=== PATIENT | female | born 1960 | race Two or more races ===

== ENCOUNTER → 2016-10-08 | Outpatient (CLI) | payer OTHER ==
--- NOTE | 2016-10-08 13:56 | WOMENS IMAGING REPORT ---
EXAM DESCRIPTION: U/S BREAST UNILATERAL, COMPL COMPLETED DATE/TIME: 10/08/2016 1:15 pm REASON FOR STUDY: RT BREAST PAIN Z85.3 PERSONAL HISTORY OF MALIGNANT NEOPLASM OF BREAST COMPARISON: None. TECHNIQUE: Real-time and static grayscale imaging performed of the right axilla targeted to the area of clinical/mammographic concern. Selected color Doppler images recorded. LIMITATIONS: None. FINDINGS: MASS: 1.3 x 0.7 cm hypoechoic nodule with echogenic hilum typical of a lymph node. No oth er mass identified. OTHER: No other significant finding. IMPRESSION: Benign lymph node. BIRAD: 2 Benign findings. RECOMMENDATION: RECOMMENDED FOLLOW-UP: Follow-up as clinically indicated. COMMENT: The [employer] (ACR) has developed recommendations for screening MRI of the breasts in certain patient populations, to be used in conjunction with mammography. Breast MRI s urveillance may be appropriate for women with more than 20% lifetime risk of developing breast cancer as determined by genetic testing, significant family history of the disease, or history of mantle r adiation for Hodgkins Disease. ACR Practice Guidelines 2008. TECHNICAL DOCUMENTATION: JOB ID: [id number] [employer]- All Rights Reserved
--- NOTE | 2016-10-08 14:37 | WOMENS IMAGING REPORT ---
EXAM DESCRIPTION: LEFT SCREENING MAMMO W/CAD COMPLETED DATE/TIME: 10/08/2016 2:23 pm REASON FOR STUDY: LEFT BREAST SCREENING Z12.31 Z85.3 PERSONAL HISTORY OF MALIGNANT NEOPLASM OF [address] COMPARISON: April 2011 TECHNIQUE: Standard craniocaudal and mediolateral oblique views of the breast recorded using digital acquisition. LIMITATIONS: None. FINDINGS: BREAST: left No masses, calcifications or architectural distortion. No areas of suspicion. Read with the assistance of CAD. .[facility] - R2 Cenova Version 1.3 .[facility] - R2 Cenova Version 1.3 .[facility] - R2 Cenova Version 2.4 .[facility] - R2 Cenova Version 2.4 .[facility] - R2 [employer] Version 9.2 IMPRESSION: NORMAL MAMMOGRAM. BIRADS 1. BREAST DENSITY: b. There are scattered areas of fibroglandular density. BIRAD: 1 NEGATIVE RECOMMENDATION: RECOMMENDATION: ROUTINE SCREENING. COMMENT: The patient has been notified of the results by letter per SA requirements. Additional no tification policies are in place for contacting patient with suspicious or incomplete findings. Quality ID #225: The [employer] recommends an annual screening mammogram for women aged 40 years or over. This facility utilizes a reminder system to ensure that all patients receive reminder letters, and/or direct phone calls for appointments. This includes reminders for routine scr eening mammograms, diagnostic mammograms, or other Breast Imaging Interventions when appropriate. Th is patient will be placed in the appropriate reminder system. The [employer] (ACR) has developed recommendations for screening MRI of the breast s in certain patient populations, to be used in conjunction with mammography. Breast MRI surveillance may be appropriate for women with more than 20% lifetime risk of developing breast cancer as determi ricci by genetic testing, significant family history of the disease, or history of mantle radiation for Hodgkins Disease. ACR Practice Guidelines 2008. TECHNICAL DOCUMENTATION: FINDING NUMBER: (1) ASSESSMENT: (1) JOB ID: [id number] [employer]- All Rights Reserved
== END ==
LOC: WI 11:03
PROVIDERS: ATTEND Nurse Practitioner
DX: Z12.31 Encounter for screening mammogram for malignant neoplasm of breast (principal); Z85.3 Personal history of malignant neoplasm of breast
CPT/HCPCS: 76641; G0202

== ENCOUNTER → 2018-03-18 | Outpatient (CLI) | payer OTHER ==
--- NOTE | 2018-03-18 12:11 | WOMENS IMAGING REPORT ---
EXAM DESCRIPTION: U/S BREAST UNILAT LIMITED COMPLETE DATE/TIME: 03/18/2018 9:16 am REASON FOR STUDY: LEFT BREAST PAIN N64.4 N64.4 MASTODYNIA Z85.3 PERSONAL HISTORY OF MALIGNANT NEOP LASM OF BREAST FINDINGS: Please see combined report for performance of procedure and radiologic supervision and int erpretation. IMPRESSION: Please see combined report for performance of procedure and radiologic supervision and i nterpretation. Reading location - IP/workstation name: [email or web address]
--- NOTE | 2018-03-18 12:11 | WOMENS IMAGING REPORT ---
EXAM DESCRIPTION: U/S BREAST UNILAT LIMITED COMPLETED DATE/TIME: 03/18/2018 9:12 am REASON FOR STUDY: RT BREAST PAIN N64.4 N64.4 MASTODYNIA Z85.3 PERSONAL HISTORY OF MALIGNANT NEOPLA SM OF BREAST COMPARISON: 10/08/2016 TECHNIQUE: Real-time and static grayscale imaging performed of the right breast targeted to the area of clinical/mammographic concern. Selected color Doppler images recorded. LIMITATIONS: None. FINDINGS: MASS: The right breast was scanned from the 10 o'clock to the 12 o'clock axes, and over t he incisional site. No mass identified. Normal glandular tissue. OTHER: As on the prior examination dated 10/08/2016, a benign-appearing right axillary lymph node whic h contains a hilus of fat, measures 11.2 x 4.2 x 7.7 mm. IMPRESSION: 1. No suspicious findings detected by ultrasound. BIRAD: 2 Benign findings. RECOMMENDATION: RECOMMENDED FOLLOW-UP: 1. Clinical correlation and patient advised to The patient was advised to follow-up with provider. COMMENT: The [employer] (ACR) has developed recommendations for screening MRI of the breasts in certain patient populations, to be used in conjunction with mammography. Breast MRI s urveillance may be appropriate for women with more than 20% lifetime risk of developing breast cancer as determined by genetic testing, significant family history of the disease, or history of mantle r adiation for Hodgkins Disease. ACR Practice Guidelines 2007. TECHNICAL DOCUMENTATION: JOB ID: [id number] [employer]- All Rights Reserved Reading location - IP/workstation name: [email or web address]
--- NOTE | 2018-03-18 12:11 | WOMENS IMAGING REPORT ---
EXAM DESCRIPTION: LEFT DIAGNOSTIC MAMMO W/CAD COMPLETED DATE/TIME: 03/18/2018 8:48 am REASON FOR STUDY: N64.4 LEFT BREAST PAIN N64.4 MASTODYNIA Z85.3 PERSONAL HISTORY OF MALIGNANT NEOP LASM OF BREAST COMPARISON: Digital left breast screening mammogram dated 10/08/2016 and 12/14/2014. TECHNIQUE: Standard craniocaudal and mediolateral oblique images of the breast recorded with digital acquisition. LIMITATIONS: None. FINDINGS: BREAST: LEFT MASSES: No suspicious masses. CALCIFICATIONS: No new or suspicious calcifications. ARCHITECTURAL DISTORTION: None. DEVELOPING DENSITY: None. ASYMMETRY: None noted. OTHER: No other significant findings. Read with the assistance of CAD. .[facility] - R2 Cenova Version 1.3 .[facility] Imaging - R2 Cenova Version 1.3 .[facility] Imaging - R2 Cenova Version 2.4 .[facility] [place] R2 Cenova Version 2.4 .[facility] - R2 [employer] Practitioner Version 9.2 BREAST ULTRASOUND: TECHNIQUE: Static and dynamic grayscale images acquired of the left breast in the specific areas of c linical/mammographic concern. Selected color Doppler images recorded. ELASTOGRAPHY PERFORMED: A FORMAL LIMITATIONS: None. FINDINGS: LEFT MASS: The left breast was scanned from the 12 to 3 o'clock axes(clinical area of pain). No mass iden tified. Normal glandular tissue. ELASTOGRAPHY CHARACTERISTICS: Not applicable. OTHER: No other significant finding. IMPRESSION: Negative -BI-RADS 1 BREAST DENSITY: b. There are scattered areas of fibroglandular density. BIRAD: 1 Negative. RECOMMENDATION: 1. Routine screening mammogram. 2. Clinical correlation and patient advised to follow-up with her provider. COMMENT: The patient has been notified of the results by letter per MQSA requirements. Additional no tification policies are in place for contacting patient with suspicious or incomplete findings. Quality ID #225: The [employer] recommends an annual screening mammogram for women aged 40 years or over. This facility utilizes a reminder system to ensure that all patients receive reminder letters, and/or direct phone calls for appointments. This includes reminders for routine scr eening mammograms, diagnostic mammograms, or other Breast Imaging Interventions when appropriate. Th is patient will be placed in the appropriate reminder system. The [employer] (ACR) has developed recommendations for screening MRI of the breast s in certain patient populations, to be used in conjunction with mammography. Breast MRI surveillanc e may be appropriate for women with more than 20% lifetime risk of developing breast cancer as deter mined by genetic testing, significant family history of the disease, or history of mantle radiation f or Hodgkins Disease. ACR Practice Guidelines 2008. TECHNICAL DOCUMENTATION: FINDING NUMBER: (1) ASSESSMENT: (1) JOB ID: [id number] [employer]- All Rights Reserved Reading location - IP/workstation name: [email or web address]
== END ==
LOC: WI 08:21
PROVIDERS: ATTEND Surgery
DX: N64.4 Mastodynia (principal); Z85.3 Personal history of malignant neoplasm of breast
CPT/HCPCS: 76642

== ENCOUNTER → 2019-02-27 | Outpatient (CLI) | payer OTHER ==
--- NOTE | 2019-02-27 11:47 | WOMENS IMAGING REPORT ---
EXAM DESCRIPTION: LEFT SCREENING MAMMO W/CAD COMPLETED DATE/TIME: 02/27/2019 9:13 am REASON FOR STUDY: Z12.31 SCREENING MAMMO Z12.31 ENCNTR SCREEN MAMMOGRAM FOR MALIGNANT NEOPLASM OF B RE COMPARISON: 2013 to 2017 EXAM PARAMETERS: Standard craniocaudal and mediolateral oblique views of the breast recorded using d igital acquisition. Read with the assistance of CAD. .[facility] - [employer] Version 9.2 LIMITATIONS: None FINDINGS: BREAST LATERALITY: left No suspicious masses, suspicious calcifications or architectural distortion. No areas of concern. IMPRESSION: NORMAL MAMMOGRAM. BIRADS 1. BREAST DENSITY: b. There are scattered areas of fibroglandular density. BIRAD: ASSESSMENT: 1 NEGATIVE RECOMMENDATION: RECOMMENDATION: ROUTINE SCREENING. COMMENT: The patient has been notified of the results by letter per MQSA requirements. Additional no tification policies are in place for contacting patient with suspicious or incomplete findings. Quality ID #225: The [employer] recommends an annual screening mammogram for women aged 40 years or over. This facility utilizes a reminder system to ensure that all patients receive reminder letters, and/or direct phone calls for appointments. This includes reminders for routine scr eening mammograms, diagnostic mammograms, or other Breast Imaging Interventions when appropriate. Th is patient will be placed in the appropriate reminder system. TECHNICAL DOCUMENTATION: FINDING NUMBER: (1) ASSESSMENT: (1) JOB ID: [id number] [employer]- All Rights Reserved Reading location - IP/workstation name: [email or web address]
== END ==
LOC: WI 08:45
PROVIDERS: ATTEND Surgery
DX: Z12.31 Encounter for screening mammogram for malignant neoplasm of breast (principal)

== ENCOUNTER 2020-03-21 08:57 | Day surgery (SDC) | payer OTHER ==
[2020-03-21 09:52] LABS: HEMATOCRIT 41.1 % (36.0-47.0); HEMOGLOBIN 13.9 g/dL (12.0-15.5); MEAN CORPUSCULAR HEMOGLOBIN 26.2 pg (27.0-33.4); MEAN CORPUSCULAR HGB CONC 33.8 g/dL (32.0-36.0); MEAN CORPUSCULAR VOLUME 78 fl (80-97); PLATELET COUNT 274 10^3/uL (150-450); RED BLOOD COUNT 5.31 10^6/uL (3.72-5.28); RED CELL DISTRIBUTION WIDTH 15.3 % (11.5-14.0); WHITE BLOOD COUNT 7.9 10^3/uL (4.0-10.5)
[2020-03-21 10:00] LABS: INTERNATIONAL RATION (INR) 1.05; PROTHROMBIN TIME 13.9 SEC (11.4-15.4)
[2020-03-21 10:01] LABS: PARTIAL THROMBOPLASTIN TIME 30.3 SEC (23.5-35.8)
[2020-03-21 10:20] LABS: BLOOD UREA NITROGEN 13 mg/dL (7-20)
[2020-03-21] MEDS ORDERED: MIDAZOLAM 2 MG/2 ML INJ ONE (11:42)
[2020-03-21] MEDS ORDERED: FENTANYL CITRATE INJ/PF 100 MCG/2 ML AMPUL ONE (11:42)
[2020-03-21] MEDS ORDERED: ACETAMINOPHEN 325 MG TABLET ONE (14:10)
--- NOTE | 2020-03-21 15:58 | RADIOLOGY REPORT (SQ) ---
EXAM DESCRIPTION: CT BIOPSY LIVER; CT NEEDLE PLACEMENT IMAGES COMPLETED DATE/TIME: 03/21/2020 12:00 pm REASON FOR STUDY: ABNORMAL RESULTS OF LIVER FUNCTION STUDIES R94.5 ABNORMAL RESULTS OF LIVER FUNCTI ON STUDIES COMPARISON: None. FLUORO TIME: 2.7 seconds. 97 images submitted to PACS. LIMITATIONS: None. PROCEDURE: The procedure, risks, benefits, and alternatives were discussed with the patient in the p reprocedural area, and all questions were answered. Informed consent was obtained verbally and in wri ting. The patient was then brought to the CT suite, positioned supine on the CT gurney, and a time-out was performed. After that, axial images of the abdomen were obtained for targeting of the right lobe of the liver. Based on review of the axial images an appropriate access site was selected on the skin. The area around selected access site was then prepped and draped with 2% chlorhexidine utilizing jaden dard sterile technique. After that, the access site was infiltrated with 1% lidocaine and an incisio n was made in the skin with a #11 blade. A 17 gauge coaxial needle was then advanced through the skin incision and into the right lobe of the liver utilizing CT fluoroscopic guidance. After that, the in ner stylet of the coaxial needle was removed and 4 18 gauge core samples were obtained - the samples were collected and submitted to cytopathology in formalin. Then, as coaxial needle was removed, the biopsy track was embolized with Gelfoam. After the coaxial needle was removed axial images of the abdomen were repeated and reviewed ; the images demonstrated n o acute biopsy-related complication. The patient tolerated the procedure well without immediate complication. At the end of the procedure the patient's condition was unchanged from the preprocedural baseline. IV conscious sedation was administered at the direction of the performing physician by a kiana monge. 1 milligrams of Versed and 50 micrograms of fentanyl. Physiologic monitoring was provided befor e, during, and after sedation. The total sedation time was 30 minutes. Documentation of [id number]-iz-[id number] time the performing proceduralist spent monitoring the patient: 15 min utes. IMPRESSION: Successful CT-guided random biopsy of the liver as detailed above. COMMENT: Patient medication list reviewed: Yes- Quality ID# [id number]:Eligible professional attests to doc umenting in the medical record they obtained, updated, or reviewed the patient's current medications. Quality ID #76: The patient was prepped and draped using maximum sterile barrier technique including cap, mask, sterile gown, sterile gloves, a large sterile sheet, hand hygiene, and 2% Chlorhexidine fo r cutaneous antisepsis. When ultrasound is used, sterile ultrasound techniques are followed requiring sterile gel and sterile probes. Quality ID 145: Final reports for procedures using fluoroscopy that document radiation exposure ron theresa, or exposure time and number of fluorographic images (if radiation exposure indices are not avail able) Quality ID# 436: Final reports with documentation of one or more dose reduction techniques (e.g., Aut omated exposure control, adjustment of the mA and/or kV according to patient size, use of iterative r econstruction technique) TECHNICAL DOCUMENTATION: JOB ID: [id number] 2010 [employer]- All Rights Reserved rev Reading location - IP/workstation name: [email or web address]
[2020-03-21 16:28] VITALS: BP 140/84
== END 2020-03-21 14:20 | disposition home or self-care (01) ==
LOC: RAD 08:57
PROVIDERS: ATTEND Internal Medicine Gastroenterology
DX: K75.81 Nonalcoholic steatohepatitis (NASH) (principal); K74.02 Hepatic fibrosis, advanced fibrosis; R94.5 Abnormal results of liver function studies; K21.9 Gastro-esophageal reflux disease without esophagitis; I10 Essential (primary) hypertension; E11.9 Type 2 diabetes mellitus without complications; E03.9 Hypothyroidism, unspecified; Z85.3 Personal history of malignant neoplasm of breast; Z79.84 Long term (current) use of oral hypoglycemic drugs; Z79.899 Other long term (current) drug therapy
CPT/HCPCS: 36415; 84520; 82565; 85027; 85610; 85730; 88305 ×2; 88313 ×2; 77012; 47000; J2250; J3010

== ENCOUNTER → 2020-03-28 | Outpatient (CLI) | payer OTHER ==
--- NOTE | 2020-03-28 11:40 | WOMENS IMAGING REPORT ---
EXAM DESCRIPTION: LEFT SCREENING MAMMO W/CAD IMAGES COMPLETED DATE/TIME: 03/28/2020 9:23 am REASON FOR STUDY: Z85.3 Z85.3 PERSONAL HISTORY OF MALIGNANT NEOPLASM OF BREAST COMPARISON: 2013 and subsequent EXAM PARAMETERS: Standard craniocaudal and mediolateral oblique views of the breast recorded using d igital acquisition. Read with the assistance of CAD. .[facility] - [employer] Sifting Operator Version 9.2 LIMITATIONS: None. FINDINGS: BREAST LATERALITY: left No suspicious masses, suspicious calcifications or architectural distortion. No areas of concern. IMPRESSION: NORMAL MAMMOGRAM. BIRADS 1. BREAST DENSITY: b. There are scattered areas of fibroglandular density. BIRAD: ASSESSMENT: 1 NEGATIVE RECOMMENDATION: RECOMMENDATION: ROUTINE SCREENING. COMMENT: The patient has been notified of the results by letter per SA requirements. Additional no tification policies are in place for contacting patient with suspicious or incomplete findings. Quality ID #225: The [employer] recommends an annual screening mammogram for women aged 40 years or over. This facility utilizes a reminder system to ensure that all patients receive reminder letters, and/or direct phone calls for appointments. This includes reminders for routine scr eening mammograms, diagnostic mammograms, or other Breast Imaging Interventions when appropriate. Th is patient will be placed in the appropriate reminder system. TECHNICAL DOCUMENTATION: FINDING NUMBER: (1) ASSESSMENT: (1) JOB ID: [id number] 2010 [employer]- All Rights Reserved Reading location - IP/workstation name: [email or web address]
== END ==
LOC: WI 11:58
PROVIDERS: ATTEND Surgery
DX: Z12.31 Encounter for screening mammogram for malignant neoplasm of breast (principal); Z85.3 Personal history of malignant neoplasm of breast